=== PATIENT | male | born 1960 | race Caucasian/White ===

== ENCOUNTER 2016-07-03 10:02 | Day surgery (SDC) | payer OTHER ==
[~2016-07-03] VITALS: Ht 172.7 cm; Wt 81.6 kg
[~2016-07-03 10:02] MED LIST: AMOXICILLIN500 M2 PO; AMOXICOT500 M1 PO; ANORO ELLIPTA1 POW IH; ATIVAN1 MG PO; BACTRIM DS 8001 TAB PO; CITALOPRAM20 MG PO; COMBIVENT RESPI1 SPR IH; DUONEB 3 MG/3 ML3 ML IH; HALDOL 1MG. TABL1 MG PO; LEVAQUIN 750 M750 MG PO; MEDROL 4MG. DOSE4 MG PO; MINOCYCLINE 10100 MG PO; MONTELUKAST SOD10 MG PO; PREDNICOT20 MG PO; PREDNISONE 20MG20 MG PO; PROPRANOLOL60 MG PO; TERAZOSIN HCL2 MG PO; TOPROL XL 25MG25 MG PO; VISTARIL25 M1 PO; VISTARIL25 MG PO
--- NOTE | 2016-07-03 11:41 | Operative Note ---
Surgeon/Diagnoses Surgeon/Elementary Assistant Teacher(s) Date of procedure: 07/03/16 Surgeon: MD Sarah Hammonds Diagnoses Pre-op diagnosis: History of colon polyps Post-op diagnosis Colon polyps Procedure Procedure Procedure: Colonoscopy with polypectomy by means other than snare Indications: PETTY MCCAULEY is a 55 year-old Male with a history of fairly large/complex polyps noted in May 2014. Findings: Bowel preparation fair to moderate Moderate tortuosity and spasticity Adjacent polyps of the hepatic flexure 3 adjacent polyps at 15 cm Adjacent polyps at 10 cm Procedure Description: After informed consent was obtained, the patient was taken to the endoscopy suite. Monitored anesthesia care ensued after he was transferred to the LEFT lateral decubitus position. Digital rectal exam revealed no significant abnormality. The colonoscope was placed in position. The entire colon was evaluated. Bowel preparation was fair to moderate with large volume irrigation and suctioning used to improve visualization. Moderate spasticity and tortuosity were encountered. Adjacent polyps of the hepatic flexure were excised with cold biopsy forceps. 3 adjacent polyps at 15 cm were excised with cold biopsy forceps. Adjacent polyps at 10 cm were excised with cold biopsy forceps. No additional mucosal lesions were noted. The colonoscope was carefully removed and the patient was transferred to recovery. EBL (ml): 1 Anesthesia: Monitored anesthesia care Complications: No immediate Specimens: Adjacent hepatic flexure polyps 3 adjacent polyps at 15 cm Adjacent polyps at 10 cm Disposition Disposition: Stable to recovery from where he will be discharged home. He will follow up in one week. Repeat colonoscopy is pending pathology but will likely be around 2 years secondary to history of significant polyps and polyps noted on fairly short-term repeat colonoscopy. at [id number]
[2016-07-03 12:29] VITALS: BP 131/91
== END 2016-07-03 12:10 | disposition home or self-care (01) ==
LOC: SDC 10:02
PROVIDERS: Surgery
PROC: 0DBE8ZX Excision of Large Intestine, Via Natural or Artificial Opening Endoscopic, Diagnostic (ICD-10-PCS; principal; 2016-07-03 10:30)
DX: Z09 Encounter for follow-up examination after completed treatment for conditions other than malignant neoplasm (principal); Z86.010 Personal history of colon polyps; K63.5 Polyp of colon